=== PATIENT | male | born 2000 | race Caucasian/White ===

== ENCOUNTER 2021-05-26 13:47 | Emergency (ER) | payer OTHER ==
[~2021-05-26] VITALS: Ht 182.9 cm; Wt 72.0 kg
[2021-05-26] MEDS ORDERED: LIDOCAINE 2%/EPI 1:100,000 20 ML VIAL. IJ ONE (14:15)
[2021-05-26 14:49] LABS: BASO # 0.1 x10^3/uL (0.0-0.2); BASO % 1 % (0-3); EOS # 0.2 x10^3/uL (0.0-0.7); EOS % 2 % (0-3); HEMATOCRIT 43.6 % (39.0-53.0); HEMOGLOBIN 14.4 g/dL (13.0-17.5); LYMPH # 5.2 x10^3/uL (1.0-4.8); LYMPH % 43 % (24-48); MEAN CORPUSCULAR HEMOGLOBIN 31 pg (25-35); MEAN CORPUSCULAR HGB CONC 33 g/dL (31-37); MEAN CORPUSCULAR VOLUME 94 fL (79-100); MONO % 9 % (0-9); NEUT # 5.7 x10^3uL (1.8-7.7); NEUT % 47 % (31-73); PLATELET COUNT 270 x10^3/uL (140-400); RED BLOOD COUNT 4.65 x10^6/uL (4.30-5.70); RED CELL DISTRIBUTION WIDTH 13.2 % (11.5-14.5); WHITE BLOOD COUNT 12.2 x10^3/uL (4.0-11.0)
[2021-05-26 14:55] LABS: ALBUMIN 4.1 g/dL (3.4-5.0); ALBUMIN/GLOBULIN RATIO 1.3 (1.0-1.7); CALCIUM 9.1 mg/dL (8.5-10.1); CREATININE 1.1 mg/dL (0.7-1.3); GFR 86.2; TOTAL BILIRUBIN 0.5 mg/dL (0.2-1.0); TOTAL PROTEIN 7.3 g/dL (6.4-8.2)
[2021-05-26 15:02] LABS: POTASSIUM 2.9 mmol/L (3.5-5.1)
[2021-05-26] MEDS ORDERED: POTASSIUM CHLORIDE 20 MEQ TABLET.ER. PO ONE (15:15)
--- NOTE | 2021-05-26 15:26 | RAD ---
XR FOREARM_LEFT 2 VIEWS, XR ELBOW COMPLETE_LEFT 3+VIEWS dated 05/26/2021 2:54 PM. History: Reason: pain, punched a glass window / Spl. Instructions: / History: Comparison: None. Findings: Elbow: Soft tissue injury is seen anteriorly. No radiopaque foreign body is evident. There is no appa rent fracture or intra-articular air. Forearm: No fracture or dislocation is seen. There is evidence of laceration toward the ulnar side at the proximal forearm. No foreign body is seen. Impression: 1. No acute bony abnormality evident. Electronically signed by: Scooter Hung Jr., MD (05/26/2021 3:24 PM) [id number]
[2021-05-26] MEDS ORDERED: ceFAZolin SODIUM 2 GM in IV DEXTROSE 5% 50 ML IV ONE (16:00)
[2021-05-26] MEDS ORDERED: IV DEXTROSE 5% 50 ML ONE (16:22)
[2021-05-26] MEDS ORDERED: ceFAZolin SODIUM 1 GM VIAL ONE (16:22)
--- NOTE | 2021-05-26 18:18 | PHYS DOC ---
Past History Past Surgical History: Other Additional Past Surgical Histo: ACL repair L knee. Alcohol Use: None General Adult EDM: Chief Complaint: LACERATION/AVULSION HPI: HPI: 20-year-old male with no significant past medical history presents to the ED brought in by biological father , (patient consents to his/her/their knowledge and involvement in pts' medical care), complains of lacerations to pts' left forearm after pt punched a glass door. Father is former army and applied a belt- reports there's alot of blood in his vehicle. States bleeding is brisk. Cat tourniquet applied in trauma bay. Patient with no history of blood transfusions or prior injury to his left arm. Is right-hand dominant. Vaccines including tetanus are up-to-date. Reports LUE tingling and worsening pain with cat Tourniquet. Review of Systems: Review of Systems: Constitutional: Denies fever or chills Eyes: Denies change in visual acuity HENT: Denies nasal congestion or sore throat Respiratory: Denies cough or shortness of breath Cardiovascular: Denies chest pain or edema or syncope GI: Denies nausea or vomiting, Musculoskeletal: Denies back pain or flank pain Integument: Denies rash or desquamation Neurologic: Denies focal weakness or sensory changes Endocrine: Denies polyuria or polydipsia Lymphatic: Denies swollen glands Psychiatric: Denies depression or anxiety Current Medications: Current Meds: Current Medications Medications (Trade) Dose Ordered Sig/Hernandez Start Time Stop Time Status Last Admin Dose Admin Cefazolin Sodium (Ancef) 1 gm STK-MED ONCE 05/26/21 16:22 05/26/21 16:23 DC Cefazolin Sodium 2 gm/Dextrose 50 ml @ 100 mls/hr 1X ONCE 05/26/21 16:00 05/26/21 16:29 DC 05/26/21 16:33 100 MLS/HR Dextrose 50 ml @ As Directed STK-MED ONCE 05/26/21 16:22 05/26/21 16:23 DC Lidocaine/ Epinephrine (Xylocaine 2%-Epi 1:100,000) 20 ml 1X ONCE 05/26/21 14:15 05/26/21 14:16 DC 05/26/21 16:28 20 ML Potassium Chloride (Klor-Con) 40 meq 1X ONCE 9/12/21 15:15 05/26/21 15:29 DC 05/26/21 16:30 40 MEQ Allergies: Allergies: Allergies Coded Allergies Type Severity Reaction Last Updated Verified corn Allergy Unknown 05/26/21 Yes Physical Exam: PE: Constitutional: Well developed, well nourished, no acute distress, non-toxic appearance. HENT: Normocephalic, atraumatic, no signs of head trauma Eyes: EOMI, conjunctiva normal, no discharge. Neck: Normal range of motion, supple, no midline neck pain Cardiovascular: S1/2 present, tachycardic on arrival Lungs & Thorax: Speaking in full sentences, bilateral equal chest rise, no tach ypnea or increased work of breathing Abdomen: soft, no tenderness, Skin: Warm, dry, no cyanosis, cap refill < 1 second Extremities: No left extremity cyanosis, bilateral radial pulses equal, 1 horizontal laceration over left antecubital fossa (1.5-2cm deep with subcutaneous fat exposed under inferior laceration margin - can see fascia and muscle belly, cannot appreciate any retracted tendons), second horizontal laceration over proximal posterior left forearm-not linear with right aspect involving a jagged skin flap with bluish color (pt warned this skin may slough off), see laceration repair for further details, Neurologic: Alert and oriented X 3, normal sensory function, Psychologic: Affect normal, judgement normal, mood normal. [] Current Patient Data: Labs: Laboratory Tests Test 05/26/21 13:50 05/26/21 14:40 05/26/21 17:05 White Blood Count 12.2 x10^3/uL (4.0-11.0) H Red Blood Count 4.65 x10^6/uL (4.30-5.70) Hemoglobin 14.4 g/dL (13.0-17.5) 11.8 g/dL (13.0-17.5) L Hematocrit 43.6 % (39.0-53.0) Mean Corpuscular Volume 94 fL (79-100) Mean Corpuscular Hemoglobin 31 pg (25-35) Mean Corpuscular Hemoglobin Concent 33 g/dL (31-37) Red Cell Distribution Width 13.2 % (11.5-14.5) Platelet Count 270 x10^3/uL (140-400) Neutrophils (%) (Auto) 47 % (31-73) Lymphocytes (%) (Auto) 43 % (24-48) Monocytes (%) (Auto) 9 % (0-9) Eosinophils (%) (Auto) 2 % (0-3) Basophils (%) (Auto) 1 % (0-3) Neutrophils # (Auto) 5.7 x10^3uL (1.8-7.7) Lymphocytes # (Auto) 5.2 x10^3/uL (1.0-4.8) H Monocytes # (Auto) 1.0 x10^3/uL (0.0-1.1) Eosinophils # (Auto) 0.2 x10^3/uL (0.0-0.7) Basophils # (Auto) 0.1 x10^3/uL (0.0-0.2) Sodium Level 143 mmol/L (136-145) Potassium Level 2.9 mmol/L (3.5-5.1) *L Chloride Level 104 mmol/L (98-107) Carbon Dioxide Level 25 mmol/L (21-32) Anion Gap 14 (6-14) Blood Urea Nitrogen 11 mg/dL (8-26) Creatinine 1.1 mg/dL (0.7-1.3) Estimated GFR (Cockcroft-Gault) 86.2 BUN/Creatinine Ratio 10 (6-20) Glucose Level 69 mg/dL (70-99) L Calcium Level 9.1 mg/dL (8.5-10.1) Total Bilirubin 0.5 mg/dL (0.2-1.0) Aspartate Amino Transferase (AST) 21 U/L (15-37) Alanine Aminotransferase (ALT) 31 U/L (16-63) Alkaline Phosphatase 92 U/L (46-116) Total Protein 7.3 g/dL (6.4-8.2) Albumin 4.1 g/dL (3.4-5.0) Albumin/Globulin Ratio 1.3 (1.0-1.7) Ethyl Alcohol Level < 10 mg/dL (0-10) Prothrombin Time 12.0 SEC (9.4-11.4) H Prothrombin Time INR 1.2 (0.9-1.1) H Activated Partial Thromboplast Time < 21 SEC (23-33) L Vital Signs: Vital Signs Date Time Temp Pulse Resp B/P (MAP) Pulse Ox O2 Delivery O2 Flow Rate FiO2 05/26/21 13:50 97.6 127 26 171/106 (127) 100 EKG: EKG: [] Radiology/Procedures: Radiology/Procedures: Indication: Left proximal posterior forearm laceration Procedure: The patient was placed in the appropriate position and anesthesia around the laceration was inserted subcutaneously. The area was then irrigated. The laceration was closed with 4-0 Prolene, total of 8 sutures. The wound area was then dressed with triple antibiotic ointment and sterile dressings. Total repaired wound length: 4.5 cm. Other Items: None The patient tolerated the procedure . Complications: None. Cannot appreciate any palpable foreign body Indication: Left antecubital fossa laceration approximately 5 cm Procedure: Patient initially presented with left tourniquet over proximal arm with brisk arteriole bleeding from antecubital vessel located over lateral margin of fossa. Figure 8 stitch successful in controlling bleeding and tourniquet was released. Venous bleeding from fossa present and pressure dressing applied while posterior forearm laceration was repaired. Patient was placed in the appropriate position and anesthesia around the left antecubital laceration was inserted subcutaneously. The area was then copiously irrigated. The laceration was closed with simple interrupted sutures, 4-0 Prolene, total of 8 sutures. The wound area was then dressed with triple antibiotic sterile dressings. Total repaired wound length: 5cm. Other Items: none The patient tolerated the procedure. Complications: After repair pt was able to fully flex and extend his left elbow- has full range of motion of left elbow, shoulder, wrist, hand and fingers. Patient with equal radial pulses. Left median/radial/ulnar sensation intact with cap refill less than 1 second in all left fingers. Cannot appreciate any palpable foreign body IMAGING REPORT Signed PATIENT: GLENDY BARBOSA ACCOUNT: [id number] : 2000 LOCATION: ER AGE: 20 SEX: M EXAM STATUS: REG ER ORD. PHYSICIAN: OPHELIA GUERIN DO REASON: pain, punched a glass window PROCEDURE: FOREARM LEFT XR FOREARM_LEFT 2 VIEWS, XR ELBOW COMPLETE_LEFT 3+VIEWS dated 05/26/2021 2:54 PM. History: Reason: pain, punched a glass window / Spl. Instructions: / History: Comparison: None. Findings: Elbow: Soft tissue injury is seen anteriorly. No radiopaque foreign body is evident. There is no apparent fracture or intra-articular air. Forearm: No fracture or dislocation is seen. There is evidence of laceration toward the ulnar side at the proximal forearm. No foreign body is seen. Impression: 1. No acute bony abnormality evident. Electronically signed by: Nelda Hung Jr., MD (05/26/2021 3:24 PM) [id number] DICTATED AND SIGNED BY: NELDA HUNG Jr, MD DATE: 05/26/21 1523 CC: PCP,NO; VOSOHAM,OPHELIA Chatman DO ~MTH0 0 Heart Score: C/O Chest Pain: No Risk Factors: Risk Factors: DM, Current or recent (<one month) smoker, HTN, HLP, family history of CAD, obesity. Risk Scores: Score 0 - 3: 2.5% MACE over next 6 weeks - Discharge Home Score 4 - 6: 20.3% MACE over next 6 weeks - Admit for Clinical Observation Score 7 - 10: 72.7% MACE over next 6 weeks - Early Invasive Strategies Course & Med Decision Making: Course & Med Decision Making Pertinent Labs and Imaging studies reviewed. (See chart for details) Concern for lacerations to left upper extremity, antecubital fossa laceration with arteriole bleeding-quickly stopped on arrival with one [id number] stitch (4-0 vicryl). I did warn given separation of subcutaneous fat, that may develop a seroma in the antecubital fossa. Patient was very tachycardic on arrival and became diaphoretic with initial presentation. Pt did not pass out, concern for vasovagal near syncope. H/H repeated with drop in 2gms. Ancef given in ed and will dc with keflex. Potassium replaced in ED. Tachycardia resolved. Patient was hemodynamically stable and well-appearing with full range of motion of left upper extremity upon multiple repeat evaluations. Will discharge home with strict ED return precautions were given for purulent drainage, rash, decreased range of motion or repeat injury. Encouraged urgent outpatient follow- up with PMD to repeat H/H and orthopedic shoe maker within 1 week for evaluation. Father reports Dr. Pena, (ortho) is a close family friend. Patient reports he is not suicidal, was not intending to harm himself-states his anger at the best home after an argument with his sibling. Life-threatening processes were considered but are low suspicion at this time, given history, physical exam and ED workup. Pt was educated on all prescription medications and adverse effects. All patient's questions were answered and pt was stable at time of discharge. Life/limb-threatening differential includes but is not limited to, trauma (fracture, dislocation, laceration, compartment syndrome, tendon or ligament injury), neurovascular injury or deficitcva/tia, infection (osteomyelitis, abscess, cellulitis, septic arthritis, necrotizing fasciitis), deep vein thrombosis, renal/cardiac/liver disease, medication adverse effect, lymphedema/a nasarca, vascular insufficiency or malignancy, I have spoken with the patient and/or caregivers. I explained the patient's co ndition, diagnoses and treatment plan based on the information available to me at this time. I have answered the patient and/or caregiver's questions and addressed any concerns. The patient and/or caregivers have a good understanding of patient's diagnosis, condition and treatment plan as can be expected at this point. Vital signs have been stable. Patient's condition is stable and appropriate for discharge from the emergency department. Patient will pursue further outpatient evaluation with primary care physician or other designated or consulting physician as outlined in the discharge instructions. The patient and/or caregivers are agreeable to this plan of care and follow-up instructions have been explained in detail. The patient and/or caregivers have received these instructions in written form and have expressed an understanding of the discharge instructions. The patient and/or caregivers are aware that any significant change of condition or worsening of symptoms should prompt immediate return to this or the closest emergency department or call to 911. Tomas Disclaimer: Tomas Disclaimer: This electronic medical record was generated, in whole or in part, using a voice recognition dictation system. Departure Departure: Impression: Primary Impression: Laceration of left arm with complication Additional Impression: Hypokalemia Disposition: 01 HOME / SELF CARE / HOMELESS Condition: STABLE Referrals: PCP,NO (PCP) [phone] OR [facility]-Dr. Toscano [phone] Patient Instructions: Laceration Care, Adult, Sutured Wound Care Additional Instructions: FOLLOW UP WITH ORTHOPEDICS: Within 1 week for reevaluation - return immediately if you should develop any expanding masses, bleeding, repeat injury, severe pain, arm weakness, decreased range of motion or sensation [facility] [address], [address] [place] [address] YOUR POTASSIUM WAS 2.9 TODAY EMERGENCY DEPARTMENT GENERAL DISCHARGE INSTRUCTIONS Thank you for coming to [facility] (ED) today and trusting us with you care. We trust that you had a positivie experience in our Emergency Department. If you wish to speak to the department management, you may call the director at [phone]. YOUR FOLLOW UP INSTRUCTIONS ARE FOLLOWS: 1. Do you have a private Doctor? If you do not have a private doctor, please ask for a resource list of physicians or clinics that may be able to assist you with follow up care. 2. The Emergency Physician has interpreted your x-rays. The X-Ray specialist will also review them. If there is a change in the findings, you will be notified in 48 hours when at all possible. 3. A lab test or culture has been done, your results will be reviewed and you will be notified if you need a change in treatment. ADDITIONAL INSTRUCTIONS AND INFORMATION: 1. Your care today has been supervised by a physician who is specially trained in emergency care. Many problems require more than one evaluation for a complete diagnosis and treatment. We recommend that you schedule your follow up appointment as recommended to ensure complete treatment of you illness or injury. If you are unable to obtain follow up care and continue to have a problem, or if your condition worsens, we recommend that you return to the ED. 2. We are not able to safely determine your condition over the phone nor are we able to give sound medical advice over the phone. For these safety reasons, if you call for medical advice we will ask you to come to the ED for further evaluation. 3. If you have any questions regarding these discharge instructions please call the ED at [phone]. SAFETY INFORMATION: In the interest of safety, wellness, and injury prevention; we encourage you to wear your sealbelt, if you smoke; quite smoking, and we encourage family to use a protective helmet for bicycling and other sporting events that present an increased risk for head injury. IF YOUR SYMPTOMS WORSEN OR NEW SYMPTOMS DEVELOP, OR YOU HAVE CONCERNS ABOUT YOUR CONDITION; OR IF YOUR CONDITION WORSENS WHILE YOU ARE WAITING FOR YOUR FOLLOW UP APPO INTMENT; EITHER CONTACT YOUR PRIMARY CARE DOCTOR, THE PHYSICIAN WHOSE NAME AND NUMBER YOU WERE GIVEN, OR RETURN TO THE ED IMMEDIATELY. Scripts Cephalexin (KEFLEX) 500 Mg Capsule 1 CAP PO QID for skin infection for 10 Days, #40 CAP Prov: OPHELIA GUERIN DO 05/26/21 OPHELIA GUERIN DO May 26, 2021 18:18
[2021-05-26] MEDS ORDERED: CEPH500C PO (18:29)
[2021-05-26 18:30] VITALS: BP 118/54
== END 2021-05-26 18:50 | disposition home or self-care (01) ==
LOC: ER 13:47
DX: S51.012A Laceration without foreign body of left elbow, initial encounter (principal); E87.6 Hypokalemia; Z91.018 Allergy to other foods; W25.XXXA Contact with sharp glass, initial encounter; Y93.89 Activity, other specified; Y92.89 Other specified places as the place of occurrence of the external cause; Y99.8 Other external cause status
CPT/HCPCS: 12004; 36415; 73080; 73090; 80053; 85018; 85025; 85610; 85730; 86850; 86900; 86901; 96365; 99285; G0480; J0690